=== PATIENT | male | born 1965 | race Caucasian/White ===

== ENCOUNTER 2024-12-28 09:09 | Emergency (ER) | payer BC, OTHER ==
[~2024-12-28] VITALS: Ht 177.8 cm; Wt 81.6 kg
[2024-12-28] MEDS ORDERED: Acetaminophen/Oxycodone 5 MG/325 MG TABLET PO ONE (09:25)
[2024-12-28] MEDS ORDERED: Ketorolac Tromethamine 30 MG/ML VIAL IM ONE (09:30)
[2024-12-28] MEDS ORDERED: CYCLOBENZAPRINE10 MG PO (10:09)
[2024-12-28] MEDS ORDERED: MELOXICAM15 MG PO (10:09)
== END 2024-12-28 10:17 | disposition home or self-care (01) ==
LOC: ED 09:09
DX: M54.6 Pain in thoracic spine (principal)